=== PATIENT | female | born 1960 | race Two or more races ===

== ENCOUNTER 2024-08-08 19:10 | Emergency (ER) | payer BC ==
[~2024-08-08] VITALS: Ht 167.6 cm; Wt 93.4 kg
[2024-08-08] MEDS ORDERED: IBUPROFEN 400 MG TABLET ONE (22:26)
[2024-08-08] MEDS: IBUPROFEN 400 MG TABLET PO ONE (22:31)
[2024-08-08] MEDS ORDERED: TDAP [DIPH/PERTUSSIS/TET] 0.5 ML VIAL IM ONE (23:35)
[2024-08-08] MEDS: TDAP [DIPH/PERTUSSIS/TET] 0.5 ML VIAL IM ONE (23:42)
[2024-08-08 23:44] VITALS: BP 132/81; TEMP 98; O2SAT 98
== END 2024-08-08 23:45 | disposition home or self-care (01) ==
LOC: ER 19:14
DX: S51.011A Laceration without foreign body of right elbow, initial encounter (principal); S39.012A Strain of muscle, fascia and tendon of lower back, initial encounter; S09.8XXA Other specified injuries of head, initial encounter; I10 Essential (primary) hypertension; Z88.2 Allergy status to sulfonamides; W10.9XXA Fall (on) (from) unspecified stairs and steps, initial encounter; Y93.89 Activity, other specified; Y92.89 Other specified places as the place of occurrence of the external cause; Y99.8 Other external cause status
CPT/HCPCS: 70450-TC; 72131-TC; 90715